=== PATIENT | male | born 1940 | race Caucasian/White ===

== ENCOUNTER → 2016-08-21 | Outpatient (CLI) | payer OTHER ==
[2016-08-21 13:17] LABS: ESTIMATED AVERAGE GLUCOSE 163 mg/dl; HA1C FLAG Normal (Normal)
[2016-08-21 13:45] LABS: BLOOD UREA NITROGEN 21 mg/dl (7-18); BUN/CREATININE RATIO 18.7 (10-20); CALCIUM 9.3 mg/dl (8.5-10.1); CARBON DIOXIDE 27 mmol/L (21-32); CHLORIDE 106 mmol/L (98-107); GLUCOSE 151 mg/dl (70-99); POTASSIUM 4.5 mmol/L (3.5-5.1); SODIUM 139 mmol/L (136-145)
== END | disposition home or self-care (01) ==
LOC: C.LABPVFM 09:30
PROVIDERS: ATTEND Family Medicine
DX: E11.9 Type 2 diabetes mellitus without complications (principal)

== ENCOUNTER → 2017-01-18 | Outpatient (CLI) | payer OTHER ==
[2017-01-18 12:54] LABS: BLOOD UREA NITROGEN 20 mg/dl (7-18); BUN/CREATININE RATIO 15.5 (10-20); CALCIUM 9.1 mg/dl (8.5-10.1); CARBON DIOXIDE 29 mmol/L (21-32); CHLORIDE 103 mmol/L (98-107); GLUCOSE 255 mg/dl (70-99); POTASSIUM 4.8 mmol/L (3.5-5.1); SODIUM 136 mmol/L (136-145)
[2017-01-18 14:54] LABS: ESTIMATED AVERAGE GLUCOSE 174 mg/dl; HA1C FLAG Normal (Normal)
== END | disposition home or self-care (01) ==
LOC: C.LABPVFM 09:21
PROVIDERS: ATTEND Family Medicine
DX: E11.9 Type 2 diabetes mellitus without complications (principal)

== ENCOUNTER → 2017-07-16 | Outpatient (CLI) | payer OTHER ==
[2017-07-16 18:30] LABS: BLOOD UREA NITROGEN 17 mg/dl (7-18); CARBON DIOXIDE 26 mmol/L (21-32); CREATININE 1.29 mg/dl (0.60-1.40); GLUCOSE 148 mg/dl (70-99); POTASSIUM 4.2 mmol/L (3.5-5.1); SODIUM 139 mmol/L (136-145)
[2017-07-17 06:20] LABS: HEMOGLOBIN A1C 7.6 % (4.5-5.6)
== END | disposition home or self-care (01) ==
LOC: C.LABPVFM 13:02
PROVIDERS: ATTEND Nurse Practitioner Family
DX: Z00.00 Encounter for general adult medical examination without abnormal findings (principal); E11.65 Type 2 diabetes mellitus with hyperglycemia